=== PATIENT | male | born 2000 | race African-American/Black ===

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

== ENCOUNTER 2022-12-14 00:32 | Emergency (ER) | payer BC ==
[2022-12-14 00:38] VITALS: BP 132/83; PULSE 88; RESP 18; TEMP 99; BMI 23.6
[2022-12-14 02:11] LABS: HEMATOCRIT 43.5 % (35.4-49); HEMOGLOBIN 14.9 GM/dL (11.7-16.9); MCH 29.4 pg (25.7-33.7); MCHC 34.2 g/dl (32.0-35.9); MEAN PLT VOLUME 9.4 fl (7.5-11.1); PLATELET COUNT 274 10^3/uL (134-434); RBC 5.06 M/mm3 (4.00-5.60); RDW 14.1 % (11.9-15.9); WHITE BLOOD COUNT 7.9 K/mm3 (4.0-10.0)
[2022-12-14 02:35] LABS: CHLORIDE 106 mmol/L (98-107); SODIUM 143 mmol/L (136-145)
[2022-12-14 02:37] LABS: ALBUMIN 4.4 g/dl (3.4-5.0); ANION GAP 7 MMOL/L (8-16); BLOOD UREA NITROGEN 8.1 mg/dL (7-18); CALCIUM 9.6 mg/dL (8.5-10.1); CO2 30 mmol/L (21-32); GLUCOSE,RANDOM 95 mg/dL (74-106)
[2022-12-14 02:39] LABS: CREATININE 1.2 mg/dL (0.55-1.3)
[2022-12-14 02:41] LABS: SGOT/AST 14 U/L (15-37); SGPT/ALT 16 U/L (13-61)
[2022-12-14 02:42] LABS: ALK PHOS 62 U/L (45-117); BILIRUBIN,TOTAL 0.5 mg/dL (0.2-1); TOT PROT 7.6 g/dl (6.4-8.2)
== END 2022-12-14 03:23 | disposition home or self-care (01) ==
LOC: FER 00:32
DX: R07.89 Other chest pain (principal)
CPT/HCPCS: 36415; 80053; 82550; 82553; 84484; 85027; 93005; 99284-25

== ENCOUNTER 2023-09-06 23:09 | Emergency (ER) | payer BC ==
[2023-09-06 23:51] VITALS: BP 135/83; PULSE 78; RESP 16; TEMP 98.9; BMI 23.7
== END 2023-09-07 00:20 | disposition home or self-care (01) ==
LOC: FER 23:09
DX: S01.112A Laceration without foreign body of left eyelid and periocular area, initial encounter (principal); W50.1XXA Accidental kick by another person, initial encounter; Y93.67 Activity, basketball
CPT/HCPCS: 99283-25

== ENCOUNTER 2023-10-10 01:09 | Emergency (ER) | payer BC, OTHER ==
[2023-10-10 01:16] VITALS: BP 144/92; PULSE 88; RESP 14; TEMP 97.8; BMI 24.3
== END 2023-10-10 01:54 | disposition home or self-care (01) ==
LOC: FER 01:09
DX: R00.2 Palpitations (principal)
CPT/HCPCS: 99282-25

== ENCOUNTER 2023-12-26 17:14 | Emergency (ER) | payer OTHER ==
[2023-12-26 17:52] VITALS: BP 138/90; PULSE 90; RESP 18; TEMP 97.9; BMI 25.7
== END 2023-12-26 20:44 | disposition home or self-care (01) ==
LOC: FER 17:14
DX: R07.89 Other chest pain (principal)
CPT/HCPCS: 71046-TC-FY; 93005; 99284-25